=== PATIENT | female | born 1970 | race Caucasian/White ===

== ENCOUNTER → 2017-01-08 | Outpatient (CLI) | payer OTHER | LOC: RAD 13:23 | DX: Z02.89 Encounter for other administrative examinations (principal) ==

== ENCOUNTER → 2017-01-13 | Outpatient (CLI) | payer OTHER | LOC: MAMMO 11:15 | DX: Z12.31 Encounter for screening mammogram for malignant neoplasm of breast (principal) | CPT/HCPCS: G0202 ==

== ENCOUNTER 2017-03-10 10:00 | Outpatient (RCR) | payer OTHER | END 2017-03-10 10:30 | disposition home or self-care (01) | LOC: PT 10:00 | DX: M54.42 Lumbago with sciatica, left side (principal) ==

== ENCOUNTER 2017-05-16 17:23 | Emergency (ER) | payer OTHER ==
[2017-05-16] MEDS ORDERED: AMOXICILLIN AND1 TA2 PO (17:42)
[2017-05-16 18:25] LABS: EOS # 0.3 (0.04-0.40); HEMATOCRIT 40.3 % (37.0-47.0); HEMOGLOBIN 13.4 g/dL (12.5-16.0); MEAN CELL VOLUME 92 fl (78-100); MEAN CORPUSCULAR HEMOGLOBIN 31 pg (27-31); MEAN CORPUSCULAR HGB CONC 33 g/dL (33-37); MEAN PLATELET VOLUME 9.8 fl (7.4-10.4); MONO # 1.4 (0.20-0.80); NEU # 10.5 (1.40-6.50); PLATELET COUNT 341 K/mm3 (130-400); RED BLOOD COUNT 4.36 M/mm3 (4.10-5.30); RED CELL DISTRIBUTION WIDTH 12.8 % (11.5-14.5); WHITE BLOOD COUNT 14.2 K/mm3 (4.8-10.8)
[2017-05-16] MEDS ORDERED: GUAIFEN-CODEIN118 ML PO (19:12)
[2017-05-16 19:49] VITALS: BP 120/74
== END 2017-05-16 19:55 | disposition home or self-care (01) ==
LOC: ED 17:23
PROVIDERS: Family Medicine
DX: J06.9 Acute upper respiratory infection, unspecified (principal); Z87.891 Personal history of nicotine dependence

== ENCOUNTER 2017-07-23 21:06 | Emergency (ER) | payer OTHER ==
[~2017-07-23] VITALS: Ht 162.6 cm; Wt 94.5 kg
[~2017-07-23 21:06] MED LIST: AMOXICILLIN AND1 TA2 PO; GUAIFEN-CODEIN118 ML PO
[2017-07-23] MEDS ORDERED: PROBIOTIC1 EAC2 PO (21:19)
[2017-07-23 22:42] LABS: EOS # 0.3 (0.04-0.40); HEMATOCRIT 36.7 % (37.0-47.0); HEMOGLOBIN 12.2 g/dL (12.5-16.0); LYMPH# 2.6 (1.50-4.00); MEAN CELL VOLUME 92 fl (78-100); MEAN CORPUSCULAR HEMOGLOBIN 31 pg (27-31); MEAN CORPUSCULAR HGB CONC 33 g/dL (33-37); MEAN PLATELET VOLUME 9.4 fl (7.4-10.4); NEU # 5.2 (1.40-6.50); PLATELET COUNT 471 K/mm3 (130-400); RED BLOOD COUNT 3.98 M/mm3 (4.10-5.30); RED CELL DISTRIBUTION WIDTH 12.6 % (11.5-14.5); WHITE BLOOD COUNT 9.2 K/mm3 (4.8-10.8)
[2017-07-23 22:57] LABS: BUN/CREATININE RATIO 19.9 (6.0-26.0); CALCIUM 8.9 mg/dL (8.4-10.2); POTASSIUM 3.6 mmol/L (3.6-5.0)
[2017-07-23 22:58] LABS: URINE APPEARANCE CLEAR; URINE COLOR YELLOW
[2017-07-23 22:59] LABS: URINE BILIRUBIN NEGATIVE (NEGATIVE); URINE BLOOD TRACE (NEGATIVE); URINE GLUCOSE NEGATIVE (NEGATIVE); URINE KETONE NEGATIVE (NEGATIVE); URINE LEUKOCYTE ESTERASE NEGATIVE (NEGATIVE); URINE MUCUS PRESENT (NOT PRESENT); URINE NITRATE NEGATIVE (NEGATIVE); URINE PROTEIN(semi-quant) NEGATIVE (NEGATIVE); URINE UROBILINOGEN NORMAL (NORMAL)
[2017-07-23] MEDS ORDERED: HCTZ 25MG25 MG PO ×2 (23:17→23:18)
[2017-07-23 23:30] VITALS: BP 116/66
[2017-07-23 23:46] LABS: ERYTHROCYTE SEDIMENTATION RATE 68 mm/hr (0-20)
== END 2017-07-23 23:30 | disposition home or self-care (01) ==
LOC: ED 21:06
PROVIDERS: Family Medicine
DX: R60.0 Localized edema (principal)

== ENCOUNTER 2018-06-30 18:53 | Emergency (ER) | payer OTHER ==
[~2018-06-30] VITALS: Ht 162.6 cm; Wt 88.2 kg
[~2018-06-30 18:53] MED LIST changes: +HCTZ 25MG25 MG PO; +PROBIOTIC1 EAC2 PO
[2018-06-30 20:28] LABS: EOS # 0.2 (0.04-0.40); EOS % 1.6 % (1.0-5.0); HEMATOCRIT 40.7 % (37.0-47.0); HEMOGLOBIN 13.3 g/dL (12.5-16.0); LYMPH# 3.2 (1.50-4.00); MEAN CELL VOLUME 92 fl (78-100); MEAN CORPUSCULAR HEMOGLOBIN 30 pg (27-31); MEAN CORPUSCULAR HGB CONC 33 g/dL (33-37); MEAN PLATELET VOLUME 9.5 fl (7.4-10.4); NEU # 6.5 (1.40-6.50); PLATELET COUNT 356 K/mm3 (130-400); RED BLOOD COUNT 4.43 M/mm3 (4.10-5.30); RED CELL DISTRIBUTION WIDTH 12.8 % (11.5-14.5); WHITE BLOOD COUNT 10.9 K/mm3 (4.8-10.8)
[2018-06-30 20:44] LABS: CALCIUM 9.7 mg/dL (8.4-10.2); POTASSIUM 3.7 mmol/L (3.6-5.0); TOTAL BILIRUBIN 0.3 mg/dL (0.2-1.3); TOTAL PROTEIN 7.1 g/dL (6.3-8.2)
[2018-06-30 22:52] VITALS: BP 126/75
== END 2018-06-30 22:52 | disposition home or self-care (01) ==
LOC: ED 18:53
PROVIDERS: Nurse Practitioner Family
DX: G43.909 Migraine, unspecified, not intractable, without status migrainosus (principal); R20.0 Anesthesia of skin; G51.0 Bell's palsy; F17.210 Nicotine dependence, cigarettes, uncomplicated; Z90.49 Acquired absence of other specified parts of digestive tract; Z87.39 Personal history of other diseases of the musculoskeletal system and connective tissue
CPT/HCPCS: J7030

== ENCOUNTER → 2018-08-16 | Outpatient (CLI) | payer OTHER | LOC: MAMMO 09:43 | DX: Z12.31 Encounter for screening mammogram for malignant neoplasm of breast (principal) ==

== ENCOUNTER → 2018-08-30 | Outpatient (CLI) | payer OTHER | LOC: RAD 09:30 | DX: D35.01 Benign neoplasm of right adrenal gland (principal); R31.29 Other microscopic hematuria | CPT/HCPCS: Q9967 ==

== ENCOUNTER → 2020-04-19 | Outpatient (CLI) | payer OTHER | LOC: RAD 12:30 | DX: E05.90 Thyrotoxicosis, unspecified without thyrotoxic crisis or storm (principal) ==

== ENCOUNTER 2020-05-30 17:08 | Inpatient (IN) | payer OTHER ==
[~2020-05-30] VITALS: Ht 162.6 cm; Wt 75.4 kg
[2020-05-30] MEDS ORDERED: LOPRESSOR 225 MG/TAB PO (17:17)
[2020-05-30 18:03] LABS: HEMATOCRIT 37.8 % (37.0-47.0); HEMOGLOBIN 12.3 g/dL (12.5-16.0); MEAN CELL VOLUME 85 fl (78-100); MEAN CORPUSCULAR HEMOGLOBIN 28 pg (27-31); MEAN CORPUSCULAR HGB CONC 33 g/dL (33-37); MEAN PLATELET VOLUME 9.9 fl (7.4-10.4); PLATELET COUNT 304 K/mm3 (130-400); RED BLOOD COUNT 4.43 M/mm3 (4.10-5.30); RED CELL DISTRIBUTION WIDTH 12.6 % (11.5-14.5); WHITE BLOOD COUNT 12.5 K/mm3 (4.8-10.8)
[2020-05-30 18:13] LABS: ALBUMIN 3.6 g/dL (3.5-5.0); POTASSIUM 4.2 mmol/L (3.5-5.1)
[2020-05-30 18:14] LABS: CALCIUM 9.6 mg/dL (8.3-10.5)
[2020-05-30 18:15] LABS: PH-URINE 8.5 (5.0 - 8.0); URINE APPEARANCE HAZY; URINE BILIRUBIN NEGATIVE (NEGATIVE); URINE BLOOD TRACE (NEGATIVE); URINE COLOR YELLOW; URINE GLUCOSE NEGATIVE (NEGATIVE); URINE KETONE 2+ (NEGATIVE); URINE LEUKOCYTE ESTERASE TRACE (NEGATIVE); URINE NITRATE NEGATIVE (NEGATIVE); URINE PROTEIN(semi-quant) TRACE mg/dL (NEGATIVE); URINE UROBILINOGEN NORMAL (NORMAL)
[2020-05-30 18:16] LABS: TOTAL PROTEIN 6.4 g/dL (6.4-8.3)
[2020-05-30 18:17] LABS: TOTAL BILIRUBIN 0.5 mg/dL (0.2-1.2)
[2020-05-30 18:39] LABS: LYMPHOCYTE 10 % (20-51); MONOCYTE 4 % (3-10); NEUTROPHILS 85 % (42-75)
[2020-05-30 20:15] VITALS: BP 105/40
[2020-05-31] VITALS (7 sets, daily range): BP systolic 93–116; BP diastolic 52–71
[2020-05-31 07:49] LABS: CALCIUM 9.2 mg/dL (8.3-10.5)
[2020-05-31 07:54] LABS: HEMATOCRIT 35.5 % (37.0-47.0); HEMOGLOBIN 11.5 g/dL (12.5-16.0); MEAN CELL VOLUME 87 fl (78-100); MEAN CORPUSCULAR HEMOGLOBIN 28 pg (27-31); MEAN CORPUSCULAR HGB CONC 32 g/dL (33-37); MEAN PLATELET VOLUME 10.1 fl (7.4-10.4); PLATELET COUNT 267 K/mm3 (130-400); RED CELL DISTRIBUTION WIDTH 12.7 % (11.5-14.5); WHITE BLOOD COUNT 9.2 K/mm3 (4.8-10.8)
[2020-05-31 08:05] LABS: LYMPHOCYTE 19 % (20-51); MONOCYTE 10 % (3-10); NEUTROPHILS 70 % (42-75)
[2020-06-01 02:09] VITALS: BP 117/63
[2020-06-01 06:23] VITALS: BP 123/62
[2020-06-01 09:58] VITALS: BP 108/52
[2020-06-01 14:21] VITALS: BP 106/64
== END 2020-06-01 14:51 | disposition home or self-care (01) | DRG 390 ==
LOC: ED 17:08 → MED/SURG 19:30
PROVIDERS: ADMIT Nurse Practitioner Family
DX: K56.600 Partial intestinal obstruction, unspecified as to cause (principal); K56.7 Ileus, unspecified; E05.90 Thyrotoxicosis, unspecified without thyrotoxic crisis or storm; I10 Essential (primary) hypertension; F17.210 Nicotine dependence, cigarettes, uncomplicated; R11.0 Nausea
CPT/HCPCS: J1650; J2270; J2405; J2550; J7030; J7120; Q9967

== ENCOUNTER → 2020-07-15 | Outpatient (CLI) | payer OTHER ==
[~2020-07-15] MED LIST changes: +LOPRESSOR 225 MG/TAB PO
== END ==
LOC: RAD 08:31
DX: N94.9 Unspecified condition associated with female genital organs and menstrual cycle (principal)

== ENCOUNTER → 2021-10-13 | Outpatient (CLI) | payer OTHER ==
[~2021-10-13] MED LIST changes: +DULCOLAX PO; +LATANOPROST 2.2.5 ML OU; +TAPAZOLE 5MG TAB5 MG PO; +TIMOLOL 0.5% OP10 ML OU
== END ==
LOC: LAB 11:21
DX: U07.1 COVID-19 (principal)